=== PATIENT | male | born 1945 | race African-American/Black ===

== ENCOUNTER 2019-09-19 06:36 | Inpatient (IN) | payer OTHER, MEDICAID ==
[~2019-09-19] VITALS: Ht 180.3 cm; Wt 64.9 kg
[2019-09-19] VITALS (46 sets, daily range): BP systolic 94–158; BP diastolic 45–87
[2019-09-19] MEDS ORDERED: LEVETIRACETAM 500MG PREMIX 100 ML IV ONE (07:00)
[2019-09-19] MEDS ORDERED: IOHEXOL-350 100 ML BOTTLE ONE (07:25)
[2019-09-19 07:34] LABS: BASOPHILS % 0.8 % (0.0-2.0); EOSINOPHILS % 1.8 % (0.0-5.0); HEMATOCRIT. 35.6 % (42.0-52.0); HEMOGLOBIN. 11.8 g/dL (14.0-18.0); LYMPHOCYTES % 24.2 % (20.0-50.0); MEAN CORPUSCULAR HEMOGLOBIN 32.2 pg (28.0-32.0); MEAN CORPUSCULAR VOLUME 96.8 fL (80.0-94.0); MEAN PLATELET VOLUME 7.7 fl (7.4-10.4); MONOCYTES % 10.6 % (2.0-8.0); NEUTROPHILS % 62.6 % (40.0-76.0); PLATELET 192 x1000/uL (130-400); RED BLOOD CELL COUNT 3.67 mill/uL (4.7-6.1); RED CELL DISTRIBUTION WIDTH 13.8 % (11.6-14.6)
[2019-09-19 07:38] LABS: PROTHROMBIN TIME 10.9 sec (9.6-11.0)
[2019-09-19 07:44] LABS: CHLORIDE 109 mEq/L (98-107)
[2019-09-19 07:49] LABS: ETHANOL BLOOD < 10 mg/dL
[2019-09-19 07:52] LABS: LDL CHOLESTEROL 79 mg/dL (5-100)
[2019-09-19 08:42] LABS: CLARITY URINE CLEAR (CLEAR); COLOR URINE YELLOW (YELLOW); KETONES URINE NEGATIVE (NEGATIVE); LEUKOCYTE ESTERASE URINE NEGATIVE (NEGATIVE); NITRITE URINE NEGATIVE (NEGATIVE); OCCULT BLOOD URINE NEGATIVE (NEGATIVE); PH URINE 7.5 (4.5-8.0); PROTEIN URINE TRACE (NEGATIVE); SPECIFIC GRAVITY URINE 1.052 (1.005-1.030); UROBILINOGEN URINE 0.2 E.U./dL (0.2-1.0)
[2019-09-19 08:58] LABS: *AMPHETAMINES SCREEN URINE NEGATIVE (NEGATIVE); CANNABINOID URINE SCREEN NEGATIVE (NEGATIVE); PHENCYCLIDINE URINE SCREEN NEGATIVE (NEGATIVE)
[2019-09-19 08:59] LABS: *BARBITURATES SCREEN URINE NEGATIVE (NEGATIVE); *BENZODIAZEPINES SCREEN URINE NEGATIVE (NEGATIVE); *COCAINE SCREEN URINE NEGATIVE (NEGATIVE); METHADONE URINE SCREEN NEGATIVE (NEGATIVE); OPIATES URINE SCREEN NEGATIVE (NEGATIVE)
[2019-09-19] MEDS ORDERED: ONDANSETRON HCL 4MG/2ML INJ IV PRN (09:30)
[2019-09-19] MEDS ORDERED: LEVETIRACETAM 500 MG in SODIUM CHLORIDE 0.9% 100 ML IV SCH (09:30)
[2019-09-19] MEDS ORDERED: ACETAMINOPHEN 325MG TABLET PO PRN (09:30)
[2019-09-19] MEDS ORDERED: DEXT 5%/LACTATED RINGERS 1,000 ML IV SCH (09:30)
[2019-09-19] MEDS ORDERED: NICARDIPINE 100 MG in SODIUM CHLORIDE 0.9% 60 ML IV PRN (10:00)
[2019-09-19] MEDS: DEXT 5%/LACTATED RINGERS 1,000 ML IV SCH (11:30)
[2019-09-19] MEDS ORDERED: DEXAMETHASONE 4MG TABLET PO SCH (12:00)
[2019-09-19] MEDS: DEXAMETHASONE 4MG/ML 1ML VIAL IV SCH ×3 (12:32→23:53)
[2019-09-19] MEDS ORDERED: LEVETIRACETAM 500MG PREMIX 100 ML IV SCH (21:00)
[2019-09-20] VITALS (36 sets, daily range): BP systolic 107–160; BP diastolic 22–90
[2019-09-20] MEDS: DEXT 5%/LACTATED RINGERS 1,000 ML IV SCH (05:11)
[2019-09-20] MEDS: DEXAMETHASONE 4MG/ML 1ML VIAL IV SCH ×3 (05:13→18:09)
[2019-09-20 05:24] LABS: BASOPHILS % 0.1 % (0.0-2.0); HEMATOCRIT. 37.5 % (42.0-52.0); HEMOGLOBIN. 12.8 g/dL (14.0-18.0); LYMPHOCYTES % 18.4 % (20.0-50.0); MEAN CORPUSCULAR HEMOGLOBIN 32.8 pg (28.0-32.0); MEAN CORPUSCULAR VOLUME 95.8 fL (80.0-94.0); MEAN PLATELET VOLUME 7.5 fl (7.4-10.4); MONOCYTES % 3.6 % (2.0-8.0); NEUTROPHILS % 77.9 % (40.0-76.0); PLATELET 191 x1000/uL (130-400); RED BLOOD CELL COUNT 3.91 mill/uL (4.7-6.1); RED CELL DISTRIBUTION WIDTH 13.4 % (11.6-14.6)
[2019-09-20 05:50] LABS: CHLORIDE 103 mEq/L (98-107)
[2019-09-20] MEDS: PANTOPRAZOLE SODIUM 40 MG/VIAL IV SCH (10:00)
[2019-09-20] MEDS ORDERED: BRIMONIDINE 0.2% OPHTH DROPS 5ML LEFTEYE ONE (11:30)
[2019-09-20] MEDS: BRIMONIDINE 0.2% OPHTH DROPS 5ML LEFTEYE SCH (12:33)
[2019-09-20] MEDS: DORZOLAM/TIMOLOL 2.23/0.68% OPHTH DROPS 10ML LEFTEYE SCH (12:47)
[2019-09-20] MEDS ORDERED: ACETAMINOPHEN 650MG SUPP PR PRN (13:15)
[2019-09-20] MEDS ORDERED: HYDRALAZINE 20MG/ML VIAL IV PRN ×2 (13:15→15:00)
[2019-09-20] MEDS ORDERED: MORPHINE SULFATE 2 MG/ML CPJ (NOT FOR IM USE) IV PRN (13:15)
[2019-09-20] MEDS ORDERED: ACETAMINOPHEN 325MG TABLET PO PRN (13:15)
[2019-09-20] MEDS ORDERED: LATANOPROST 0.005% OPHTH DROPS 2.5ML BOTHEYE SCH (21:00)
[2019-09-21] VITALS: BP 131/73
[2019-09-21] MEDS: DEXAMETHASONE 4MG/ML 1ML VIAL IV SCH ×3 (00:33→14:37)
[2019-09-21 04:00] VITALS: BP 143/89
[2019-09-21 07:52] LABS: HEMATOCRIT 36.9 % (42.0-52.0); HEMOGLOBIN 12.5 g/dL (14.0-18.0); MEAN CORPUSCULAR HEMOGLOBIN 32.6 pg (28.0-32.0); MEAN CORPUSCULAR VOLUME 96.2 fL (80.0-94.0); PLATELET 210 x1000/uL (130-400); RED BLOOD CELL COUNT 3.84 mill/uL (4.7-6.1); RED CELL DISTRIBUTION WIDTH 13.6 % (11.6-14.6)
[2019-09-21 08:00] VITALS: BP 134/76
[2019-09-21 08:10] LABS: CHLORIDE 101 mEq/L (98-107)
[2019-09-21] MEDS: PANTOPRAZOLE SODIUM 40 MG/VIAL IV SCH (09:49)
[2019-09-21] MEDS: BRIMONIDINE 0.2% OPHTH DROPS 5ML LEFTEYE SCH (09:49)
[2019-09-21] MEDS: DORZOLAM/TIMOLOL 2.23/0.68% OPHTH DROPS 10ML LEFTEYE SCH (09:49)
[2019-09-21] MEDS ORDERED: HYDRALAZINE 5 MG in SODIUM CHLORIDE 0.9% 49.75 ML IV PRN (15:30)
[2019-09-21] MEDS ORDERED: HYDRALAZINE 10 MG in SODIUM CHLORIDE 0.9% 49.5 ML IV PRN (15:30)
[2019-09-21] MEDS ORDERED: AMLODIPINE 5MG TABLET PO SCH (15:30)
[2019-09-21 16:06] VITALS: BP 138/78
== END 2019-09-21 18:30 | DRG 64 ==
LOC: ER 06:47 → MICUSO 07:45 → EDBEDREQTM 08:02 → EDBEDREQSVC 08:02 → EDBEDREQ 08:02 → ENRESERV 08:25 → MICUNO 11:06 → 6EST 09-20 17:00
PROVIDERS: ADMIT Internal Medicine; ATTEND Internal Medicine
DX: I61.9 Nontraumatic intracerebral hemorrhage, unspecified (principal); E43 Unspecified severe protein-calorie malnutrition; I50.33 Acute on chronic diastolic (congestive) heart failure; G81.94 Hemiplegia, unspecified affecting left nondominant side; D72.819 Decreased white blood cell count, unspecified; E87.5 Hyperkalemia; E87.8 Other disorders of electrolyte and fluid balance, not elsewhere classified; N40.0 Benign prostatic hyperplasia without lower urinary tract symptoms; R00.1 Bradycardia, unspecified; I10 Essential (primary) hypertension; D64.9 Anemia, unspecified; H40.9 Unspecified glaucoma; I11.0 Hypertensive heart disease with heart failure; Z68.20 Body mass index [BMI] 20.0-20.9, adult
CPT/HCPCS: 36415; 70496; 71045; 80048; 80053; 80305; 80320; 81003; 82962; 83721; 84484; 85025; 85027; 92610; 93005; 93306; 93970; 97162; 97166; 97530; 97535; 99291; C9113; J1100; J1953; Q9967; G0480